=== PATIENT | male | born 2000 | race Hispanic/Latino ===

== ENCOUNTER 2025-01-29 10:23 | Emergency (ER) | payer OTHER, SELFPAY ==
[2025-01-29] VITALS (8 sets, daily range): BP systolic 126–138; BP diastolic 63–81; PULSE 51–78; RESP 18–24; TEMP 36.6; O2SAT 98–100; BMI 29.2
--- NOTE | 2025-01-29 10:35 | DI.RAD.S_ITS ---
PROCEDURE: XR CHEST 1V INDICATIONS: chest pain TECHNIQUE: One view of the chest was acquired. COMPARISON: None. FINDINGS: Surgical changes and devices: None. Lungs and pleura: Lungs are clear. No pleural effusions or pneumothorax. Mediastinum: Mediastinal contours appear normal. Heart size is normal. Bones and chest wall: No suspicious bony lesions. Overlying soft tissues appear unremarkable. IMPRESSION: No acute cardiopulmonary abnormality is seen. Dictated by: Basil Tavera M.D. on 01/29/2025 at 10:59 Approved by: Basil Tavera M.D. on 01/29/2025 at 10:59
--- NOTE | 2025-01-29 10:35 | EKG_ITS ---
[address] [address] Test Date: 2025-01-29 Pat Name: Getachew Esquivel Department: Room: Gender: Male Django Developer: SHANTE : 2000 Requested By: Order Number: [id number] Reading MD: Prabhjot Guzman Measurements Intervals [place] Rate: 62 P: 44 SD: 178 QRS: 45 QRSD: 98 T: 6 QT: 386 QTc: 391 Interpretive Statements Normal sinus rhythm Electronically Signed On 01-29-2025 15:49:43 PDT by Prabhjot Guzman
--- NOTE | 2025-01-29 10:45 | PC.NURSE ---
PT sitting up in gurney. Appears in NAD. Denies chest pain at this time. Says that he felt weird, had EKG done, and told to come to ER for further evaluation.
[2025-01-29 10:48] LABS: Add Manual Diff / Slide Review NO; Basophils Absolute Auto 100 /uL (0-100); Basophils Percent Auto 0.7 % (0-2); Eosinophils Absolute Auto 300 /uL (0-450); Eosinophils Percent Auto 3.2 % (2-4); Hematocrit 41.1 % (41-53); Hemoglobin 14.2 g/dL (13.5-17.5); Lymphocytes Absolute Auto 4100 /uL (1100-4500); Lymphocytes Percent Auto 51.7 % (25-40); Mean Corpuscular HGB Conc 34.4 % (30-36); Mean Corpuscular Hemoglobin 29.8 PG (26-34); Mean Corpuscular Volume 86.6 fL (80-100); Monocytes Absolute Auto 500 /uL (0-900); Monocytes Percent Auto 6.3 % (3-14); Neutrophils Absolute Auto 3000 /uL (1500-7000); Neutrophils Percent Auto 38.1 % (50-75); Platelet Count 187 X10^3/uL (150-400); Red Blood Cell Count 4.74 X10^6/uL (4.5-5.9); Red Cell Distribution Width 14.2 % (11.6-14.8); White Blood Cell Count 7.9 X10^3/uL (4.5-11.0)
[2025-01-29 10:56] LABS: Prothrombin Time 11.8 SECONDS (9.4-12.5)
[2025-01-29 10:59] LABS: Alanine Aminotransferase 34 IU/L (<50); Albumin 4.7 g/dL (3.5-5.0); Albumin Globulin Ratio 1.2 (1.0-2.8); Alkaline Phosphatase 95 U/L (38-126); Aspartate Aminotransferase 24 IU/L (17-59); BUN Creatinine Ratio 13.8 (6-22); Bilirubin Total 0.5 mg/dL (0.2-1.3); Blood Urea Nitrogen 16 mg/dL (9-20); Calcium 9.4 mg/dL (8.4-10.2); Carbon Dioxide 25 mmol/L (22-32); Chloride 105 mmol/L (98-107); Creatine Kinase 396 U/L (55-170); Estimated Glomerular Filt Rate > 60 mL/min (>60); Globulin 3.9 g/dL (1.7-4.1); Glucose 96 mg/dL (70-100); HEMOLYSIS < 15 (0-50); Lipase 59 U/L (23-300); Magnesium 1.9 mg/dL (1.6-2.3); PTT Partial Thromboplastin Tim 32 SECONDS (25.1-36.5); Potassium 3.9 mmol/L (3.4-5.1); Sodium 139 mmol/L (137-145); Total Protein 8.6 g/dL (6.3-8.2)
[2025-01-29 11:10] LABS: NT-proBNP (BNP-Adult 18+) < 20 pg/mL (<125); Troponin I < 0.012 ng/mL (0.01-0.034)
--- NOTE | 2025-01-29 12:01 | ED_ITS ---
HPI - Arrhythmia/Palpitations General Chief Complaint: Arrhythmia/Palpitations Stated Complaint: Heart Issues Time Seen by Provider: 01/29/25 12:01 Source: patient, RN notes reviewed and old records reviewed Mode of arrival: Ambulatory Limitations: no limitations History of Present Illness HPI narrative: 24-year-old male no reported medical issues who states he was trying to fall asleep last night felt like his heart was flip-flopping or palpitating and was sweaty could not fall asleep[place] sent to the ER for his abnormal EKG. Patient states he never had any chest pain or pressure, no shortness of breath, no fevers or chills, no nausea or vomiting, no new swelling in extremities no abdominal back or flank pain. No issues with bowel movements or urination. Has not had similar symptoms in the past. Patient states was still feeling at this morning when he went to have his EKG. He states it was present when they did the EKG. Patient is not having it currently. States no daily prescriptions. No prior surgeries. No known drug allergies. No tobacco, states no regular alcohol none recently. No recreational drugs. Does sometimes have caffeine and energy drinks but none yesterday. He did have pre workout supplement in the afternoon which he takes intermittently but not daily. No other reported family medical history. Related Data Allergies Allergy/AdvReac Type Severity Reaction Status Date / Time No Known Drug Allergies Allergy Verified 01/29/25 10:27 Review of Systems Review of Systems ROS Unobtainable: All systems reviewed & are unremarkable except as noted in HPI and below Patient History Social History Smoking Status: Never smoker Smoking Status: Never smoker Exam Narrative Exam Narrative: GENERAL: Alert and oriented x three, male in no acute distress HEENT: Head normocephalic, atraumatic, EOMI, pupils reactive, face symmetric, moist mucous membranes NECK: Supple, full range of motion CARDIOVASCULAR: Regular rate and rhythm without murmurs, rubs or gallops. No JVD. No edema bilateral upper and lower extremities. RESPIRATORY: Breath sounds equal bilaterally, no wheezes rales or rhonchi. ABDOMEN: Soft, nontender. Normoactive bowel sounds all 4 quadrants. No guarding or rebound, rigidity, no mass : No CVA tenderness EXTREMITIES: Normal range of motion, no clubbing or edema. Neurovascularly intact NEUROLOGICAL: Cranial nerves II through XII grossly intact. Moving all extremities SKIN: Warm, dry, no petechiae, no rashes or lesions. Initial Vital Signs Initial Vital Signs: Vital Signs Temperature 97.8 F 01/29/25 10:27 Pulse Rate 59 L 01/29/25 10:27 Respiratory Rate 18 01/29/25 10:27 Blood Pressure 131/63 01/29/25 10:27 Pulse Oximetry 100 01/29/25 10:27 Oxygen Delivery Method Room Air 01/29/25 10:27 Scores PERC Score Age greater than or equal to 50 years: No Heart rate greater than or equal to 100 bpm: No Room Air O2 Sat less than 95%: No Unilateral leg swelling: No Recent trauma or surgery: No Hemoptysis: No Prior PE or DVT: No Hormone Use: No Total PERC Score: 0 Course Orders Ordered: ED Orders 01/29/25 10:35 XR chest 1V Stat EKG-12 Lead Stat 01/29/25 10:41 Complete Blood Count AUTO DIFF Stat Comprehensive Metabolic Panel Stat Lipase Stat Magnesium Stat NT-proBNP (BNP-Adult 18+) Stat PTT Partial Thromboplastin Eligio Stat Prothrombin Time INR Stat Troponin & CK Cardiac Panel Stat Discontinued Medications Aspirin (Aspirin 81 Mg Chew Tab) 324 mg PO NOW ONE Stop: 01/29/25 10:36 Vital Signs Vital signs: Vital Signs - 8 hr 01/29/25 11:30 01/29/25 12:00 01/29/25 12:30 Pulse Rate 63 51 L 68 Respiratory Rate 21 19 21 Blood Pressure Pulse Oximetry 99 98 99 Oxygen Delivery Method Room Air 01/29/25 12:32 01/29/25 12:32 Pulse Rate 62 Respiratory Rate 22 Blood Pressure 126/72 Pulse Oximetry 98 Oxygen Delivery Method MDM - Arrhythmia/Palpitations Lab Data 01/29/25 10:41 01/29/25 10:41 Labs: Lab Results 01/29/25 Range/Units 10:41 WBC 7.9 (4.5-11.0) X10^3/uL RBC 4.74 (4.5-5.9) X10^6/uL Hgb 14.2 (13.5-17.5) g/dL Hct 41.1 (41-53) % MCV 86.6 (80-100) fL MCH 29.8 (26-34) PG MCHC 34.4 (30-36) % RDW 14.2 (11.6-14.8) % Plt Count 187 (150-400) X10^3/uL Neut % (Auto) 38.1 L (50-75) % Lymph % (Auto) 51.7 H (25-40) % [place] % (Auto) 6.3 (3-14) % Eos % (Auto) 3.2 (2-4) % Baso % (Auto) 0.7 (0-2) % Neut # (Auto) 3000 (3680-7697) /uL Lymph # (Auto) 4100 (9375-1549) /uL [place] # (Auto) 500 (0-900) /uL Eos # (Auto) 300 (0-450) /uL Baso # (Auto) 100 (0-100) /uL PT 11.8 (9.4-12.5) SECONDS INR 1.0 (0.9-1.3) APTT 32 (25.1-36.5) SECONDS Sodium 139 (137-145) mmol/L Potassium 3.9 (3.4-5.1) mmol/L Chloride 105 (98-107) mmol/L Carbon Dioxide 25 (22-32) mmol/L BUN 16 (9-20) mg/dL Creatinine 1.16 (0.66-1.25) mg/dL Estimated GFR > 60 (>60) mL/min BUN/Creatinine Ratio 13.8 (6-22) Glucose 96 (70-100) mg/dL Calcium 9.4 (8.4-10.2) mg/dL Magnesium 1.9 (1.6-2.3) mg/dL Total Bilirubin 0.5 (0.2-1.3) mg/dL AST 24 (17-59) IU/L ALT 34 (<50) IU/L Alkaline Phosphatase 95 (38-126) U/L Total Creatine Kinase 396 H (55-170) U/L Troponin I < 0.012 (0.01-0.034) ng/mL NT-Pro-B Natriuret Pep < 20 (<125) pg/mL Total Protein 8.6 H (6.3-8.2) g/dL Albumin 4.7 (3.5-5.0) g/dL Globulin 3.9 (1.7-4.1) g/dL Albumin/Globulin Ratio 1.2 (1.0-2.8) Lipase 59 (23-300) U/L MDM Narrative Medical decision making narrative: Labs show normal white count,, coags are normal, electrolytes, BUN creatinine are normal glucose is 96 total CK is 396 troponins less than 0.012 with a BNP of less than 20 lipase is 59. Chest x-ray shows no acute change. EKG shows sinus rhythm rate of 62, IN 178 QRS of 98 QTC of 391, no acute ST elevation or depression. I do have patient[place] and it shows sinus rhythm rate of 64, IN 168 QRS of 100 QTC of 392 appears similar to today's EKG machine read shows sinus rhythm ST elevation probably due to early repolarization, borderline EKG. There are no dynamic changes between the EKGs. 24-year-old male who has what sounds like palpitations last night [place] was still having them when he had the EKG they do not capture any. Told me he was sent because of his EKG. Patient's exam today is overall reassuring labs and workup are appropriate, EKG shows sinus rhythm with no arrhythmias irregularities on telemetry. PERC score is 0. Patient is felt appropriate for discharge home. Discussed if persistent symptoms very mild to follow up for Holter or ZIO patch. If any new or concerning changes to return to the ED. Discharge Plan Departure Patient Disposition: Home Clinical Impression: Palpitations Instructions: DI for Palpitations Activity Restrictions/Additional Instructions: Follow up as needed if you have any recurrent palpitations. If you have recurrent episodes I would recommend follow up for possible Holter monitor or ZIO patch through primary care. Make sure your hydrating regularly. Please return for new or worsening symptoms, new chest pain or shortness of breath, lightheadedness or passing out, recurrent elevated or irregular heartbeat, new swelling of your extremities or other new or concerning changes. Referrals: ProviderNesha [Primary Care Provider] - Stand Alone Forms: Patient Portal/API/Survey
== END 2025-01-29 12:43 | disposition home or self-care (01) ==
PROVIDERS: Emergency Provider Emergency Medicine
DX: R00.2 Palpitations (principal)
CPT/HCPCS: 36415; 71045; 80053; 82550; 83690; 83735; 83880; 84484; 85025; 85610; 85730; 93005; 99283; 99284